=== PATIENT | female | born 1980 | race American Indian/Alaskan Native ===

== ENCOUNTER 2016-04-22 11:32 | Outpatient (CLI) | payer OTHER | END 2016-04-22 11:33 | disposition home or self-care (01) | DX: D50.9 Iron deficiency anemia, unspecified (principal); R53.1 Weakness ==

== ENCOUNTER 2016-07-04 11:49 | Outpatient (CLI) | payer OTHER | END 2016-07-04 11:50 | disposition home or self-care (01) | DX: R94.5 Abnormal results of liver function studies (principal) ==

== ENCOUNTER 2016-07-11 18:50 | Outpatient (CLI) | payer OTHER | END 2016-07-11 18:51 | disposition home or self-care (01) | DX: K76.0 Fatty (change of) liver, not elsewhere classified (principal) ==

== ENCOUNTER 2016-08-08 08:00 | Outpatient (CLI) | payer OTHER ==
[2016-08-08 19:40] LABS: ALBUMIN/GLOBULIN RATIO 0.9 (1.0-2.2); BILIRUBIN,TOTAL 0.2 mg/dL (0.2-1.0); CALCIUM 9.4 mg/dL (8.5-10.3); CREATININE 0.6 mg/dL (0.4-1.0); POTASSIUM 3.8 mmol/L (3.5-5.0); TOTAL PROTEIN 8.1 g/dL (6.7-8.2)
== END 2016-08-08 08:01 | disposition home or self-care (01) ==
LOC: LAB.WCP 08:00
PROVIDERS: ATTEND Physician Assistant Medical
DX: R94.5 Abnormal results of liver function studies (principal)
CPT/HCPCS: 36415; 80053

== ENCOUNTER 2016-08-15 08:40 | Outpatient (CLI) | payer OTHER ==
[2016-08-16 22:16] LABS: TEST RESULT REPORT (())
[2016-08-17 11:08] LABS: TEST RESULT REPORT (())
== END 2016-08-15 08:41 | disposition home or self-care (01) ==
LOC: LAB.WCP 08:40
PROVIDERS: ATTEND Physician Assistant Medical
DX: N76.0 Acute vaginitis (principal)
CPT/HCPCS: 81599; 87255; 87480; 87510; 87660

== ENCOUNTER 2016-12-17 15:00 | Outpatient (CLI) | payer OTHER ==
[2016-12-17 19:17] LABS: BILIRUBIN,DIRECT 0.1 mg/dL (0.1-0.5); BILIRUBIN,TOTAL 0.5 mg/dL (0.2-1.0); TOTAL PROTEIN 7.1 g/dL (6.7-8.2)
== END 2016-12-17 15:01 | disposition home or self-care (01) ==
LOC: LAB.WCP 15:00
PROVIDERS: ATTEND Physician Assistant Medical
DX: K76.0 Fatty (change of) liver, not elsewhere classified (principal); Z71.9 Counseling, unspecified
CPT/HCPCS: 36415; 80076; 86803

== ENCOUNTER 2017-11-25 06:14 | Day surgery (SDC) | payer OTHER ==
[2017-11-25 06:48] LABS: HCG UR QUAL NEGATIVE
--- NOTE | 2017-11-25 07:01 | ANESTHESIA ---
Pre-Anesthesia VS, & Labs - Diagnosis right trigger thumb - Procedure right trigger thumb release Vital Signs: Temp Pulse Resp BP Pulse Ox 36.2 C L 16 152/96 H 98 11/25/17 06:35 11/25/17 06:35 11/25/17 06:35 11/25/17 06:35 HR 76 Height 5 ft 9 in Weight (kg) 128.1 kg Body Mass Index 36.5 - NPO >8 hours Last Fluid Intake: except 3:45 am - Is Patient ?: No Home Medications and Allergies Home Medications: Ambulatory Orders Medication Instructions Recorded Confirmed Cholecalciferol [Vitamin D3] 5,000 unit PO DAILY 11/24/17 11/25/17 Cyclobenzaprine HCl 5 mg PO TID PRN 11/24/17 11/25/17 Lisinopril/Hydrochlorothiazide 1 each PO DAILY 11/24/17 11/25/17 [Lisinopril-Hctz 10-12.5 mg Tab] Meloxicam 15 mg PO DAILY 11/24/17 11/25/17 Norgestimate-Ethinyl Estradiol 1 each PO DAILY 11/24/17 11/25/17 [Mononessa 28 Tablet] Ubidecarenone [Co Q-10] 100 mg PO TID 11/24/17 11/25/17 traMADol [Ultram] 50 mg PO Q4-6H PRN 11/24/17 11/25/17 Acetaminophen [Acetaminophen ER] 2 PRN 11/25/17 Allergies/Adverse Reactions: Allergies Allergy/AdvReac Type Severity Reaction Status Date / Time doxycycline Allergy Cramps Verified 11/24/17 13:24 duloxetine [From Cymbalta] Allergy Anxiety Verified 11/24/17 13:24 ibuprofen Allergy Hives Verified 11/24/17 13:24 melatonin Allergy Nausea Verified 11/24/17 13:24 naproxen [From Naprosyn] Allergy Hives Verified 11/24/17 13:24 sulfamethoxazole Allergy Dizziness Verified 11/24/17 13:24 [From Septra] trimethoprim [From Septra] Allergy Dizziness Verified 11/24/17 13:24 Anes History & Medical History - Anesthetic History Anesthesia Complications: reports: No previous complications Family history of Anesthesia Complications: Denies - Medical History Cardiovascular: reports: Hypertension Pulmonary: reports: None Gastrointestinal: reports: None, Other Urinary: reports: Chronic bladder infection Musculoskeletal: reports: Fibromyalgia, Rheumatoid arthritis, Scoliosis, Chronic back pain Endocrine/Autoimmune: reports: None Skin: reports: None Smoking Status: Current every day smoker (e cigarettes) - Surgical History Eyes Ears Nose Throat (EENT): Tonsil/Adenoidectomy Orthopedic: Spine surgery Exam General: Alert Dental: WNL Mouth Openin Fingerbreadth Neck Mobility: Limited Mallampati classification: III Thyromental Distance: greater than 6 cm Respiratory: Lungs clear Cardiovascular: Regular rate Mental/Cognitive Status: Alert/Oriented X3 Cognitive Status: Within normal limits Plan Anesthesia Type: MAC Consent for Procedure(s) Verified and Reviewed: Yes Code Status: Attempt Resuscitation ASA classification: 2-Mild systemic disease Is this case an emergency?: No
[2017-11-25] MEDS ORDERED: BUPIVACAINE 0.25%-EPI 1:200000 PF 30 ML VIAL ONE (07:05)
[2017-11-25] MEDS ORDERED: LACTATED RINGERS 1,000 ML IV ONE ×2 (07:12)
[2017-11-25] MEDS ORDERED: BUPIVACAINE 0.25%-EPI 1:200000 PF 10 ML VIAL SUBQ ONE ×3 (07:44)
[2017-11-25] MEDS ORDERED: MIDAZOLAM 2 MG/2 ML VIAL IVP ONE (08:00)
[2017-11-25] MEDS ORDERED: LIDOCAINE-MPF 2% 5 ML VIAL IM ONE (08:00)
[2017-11-25] MEDS ORDERED: fentaNYL 100 MCG/2 ML VIAL IVP ONE (08:00)
[2017-11-25] MEDS ORDERED: PROPOFOL 200 MG/20 ML VIAL IVP ONE (08:00)
[2017-11-25 08:52] VITALS: BP 136/82
--- NOTE | 2017-11-25 09:03 | OPERATIVE REPORT ---
DATE OF SERVICE: 11/25/2017 Physician: Mikaela Narvaez MD PREOPERATIVE DIAGNOSIS: Right trigger thumb. POSTOPERATIVE DIAGNOSIS: Right trigger thumb. NAME OF PROCEDURE: Right trigger thumb release. SURGEON: Mikaela Narvaez MD ANESTHESIA: Local, MAC. ANESTHESIOLOGIST: Virgil Chlid. INDICATIONS FOR SURGERY: Patient is a 37-year-old female who has had pain at the base of her thumb and periods of triggering with prior cortisone injection not relieving the problem, and the patient returning to the clinic with continued pain and prominence, but with slightly diminished triggering. At that point, surgery was recommended. FINDINGS AT SURGERY: The patient had synovitis of her tendon sheath. She did have a small ganglion of the A1 leo and prominence of that leo. There were otherwise no abnormalities in the tendon itself. DESCRIPTION OF OPERATIVE PROCEDURE: The patient was taken to the operating room , was given a light sedation with propofol in a supine position on the [facility]. The right hand was sterilely prepped and draped in a standard fashion. The patient had a transverse incision plotted with a marking pen and surgical timeout was held, after which infiltration was performed initially with about 2 mL of 0.25% Marcaine with epinephrine only in the tendon sheath and the local skin. After an appropriate delay for onset of anesthesia, the incision was made and a careful dissection was made in line with the tendon sheath down to the tendon sheath, exposing the area of the leo and the cystic abnormality, which was removed with a rongeur. The incision was made in the tendon sheath and the release taken through the A1 leo of the thumb. The tendon was inspected with the thumb moving from flexion into extension, and there was no evidence of triggering or constriction. Irrigation was performed and the thumb closed with interrupted 4-0 nylon suture. Sterile dressings were applied. The patient was then taken to the recovery room in stable condition. ESTIMATED BLOOD LOSS: Minimal. COMPLICATIONS: None. COUNTS: Sponge and needle counts correct. TD: 11/25/2017 08:31 MTDD
== END 2017-11-25 06:15 | disposition home or self-care (01) ==
LOC: SDS 06:14
PROVIDERS: ATTEND Orthopaedic Surgery
PROC: 0LN70ZZ Release Right Hand Tendon, Open Approach (ICD-10-PCS; principal; 2017-11-25 07:30)
DX: M65.311 Trigger thumb, right thumb (principal); M67.441 Ganglion, right hand; E66.9 Obesity, unspecified; I10 Essential (primary) hypertension; M79.7 Fibromyalgia; M06.9 Rheumatoid arthritis, unspecified; F17.290 Nicotine dependence, other tobacco product, uncomplicated; Z68.41 Body mass index [BMI] 40.0-44.9, adult; Z79.899 Other long term (current) drug therapy
CPT/HCPCS: 26055; 81025; J7120

== ENCOUNTER 2018-07-28 21:37 | Outpatient (CLI) | payer OTHER ==
--- NOTE | 2018-07-28 22:55 | XRAY Report ---
Reason: JOINT EFFUSION, KNEE PAIN, RIGHT KNEE Procedure Date: 07/28/2018 Accession Number: [id number] / [id number] Procedure: XR - Knee 3 View RT CPT Code: FULL RESULT: EXAM: RIGHT KNEE RADIOGRAPHY EXAM DATE: 07/28/2018 09:53 PM. CLINICAL HISTORY: Joint effusion, knee pain, bursitis flare-up of the right knee. Getting worse and more frequent. Current flare was lasting 4 days. COMPARISON: None. TECHNIQUE: 3 views. Weightbearing views are provided. FINDINGS: Bones: No acute displaced fractures or suspicious bony lesion. Joints: No dislocation. There is mild tricompartmental degenerative change. Small knee effusion. Soft Tissues: No significant soft tissue swelling. IMPRESSION: Small knee effusion. No acute osseous abnormality demonstrated. RADIA
== END 2018-07-28 21:38 | disposition home or self-care (01) ==
LOC: DI 21:37
PROVIDERS: ATTEND Family Medicine
DX: M25.561 Pain in right knee (principal); M25.461 Effusion, right knee

== ENCOUNTER 2018-11-18 09:52 | Outpatient (CLI) | payer OTHER ==
--- NOTE | 2018-11-19 10:16 | MRI Report ---
Reason: CHONDROMALACIA PATELLAE, RIGHT KNEE, KNEE PAIN, RI Procedure Date: 11/18/2018 Accession Number: [id number] / [id number] Procedure: MRI - Knee RT W/O CPT Code: FULL RESULT: EXAM: RIGHT KNEE MRI WITHOUT CONTRAST EXAM DATE: 11/18/2018 11:04 AM. CLINICAL HISTORY: CHONDROMALACIA PATELLAE, RIGHT KNEE, KNEE PAIN, RI. COMPARISON: KNEE 3 VIEW RT 07/28/2018 9:41 PM. TECHNIQUE: Multiplanar, multisequence T1-weighted and fluid-sensitive sequences of the knee without contrast. Other: None. FINDINGS: Bones and articular cartilage: Small marginal osteophytes at the femoral condyles and lateral tibial plateau. There is a large, approximately 2.5 x 1.7 cm full-thickness articular cartilage defect at the medial femoral condyle. There is a 0.8 x 1.2 cm full-thickness articular cartilage defect at the anterior aspect of the medial tibial plateau. Focal grade II chondromalacia at the medial aspect of the lateral femoral condyle. Full-thickness articular cartilage fissure or delamination injury at the posterior medial aspect of the lateral tibial plateau. Focal articular cartilage fissures at the femoral trochlear groove. No patellar subluxation. Medial Meniscus: The medial meniscus is intact. Lateral Meniscus: The lateral meniscus is intact. Cruciate Ligaments: The anterior and posterior cruciate ligaments are intact. Collateral Ligaments: The medial collateral and lateral collateral ligamentous structures are intact. Tendons: The quadriceps, patellar, semimembranosus, and popliteus tendons are unremarkable. Musculature: No edema or fatty atrophy. Other: Small joint effusion. There are loose bodies and/or focal synovial thickening and irregularity at the lateral aspect of the patellofemoral compartment. There are loose bodies at the anterior aspect of the lateral compartment and posterior aspect of the medial compartment. No popliteal cyst. The medial and lateral retinacula are intact. The subcutaneous tissues and fat pads are unremarkable. IMPRESSION: 1. 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 2. No ligament or meniscal tear. 3. Small joint effusion. 4. Multiple small loose bodies and/or focal synovial thickening and irregularity at the lateral aspect of the patellofemoral compartment. Multiple small loose bodies at the anterior aspect of the lateral compartment and posterior aspect of the medial compartment. RADIA
== END 2018-11-18 09:53 | disposition home or self-care (01) ==
LOC: DI 09:52
PROVIDERS: ATTEND Orthopaedic Surgery
DX: M94.261 Chondromalacia, right knee (principal); M25.461 Effusion, right knee; M23.41 Loose body in knee, right knee

== ENCOUNTER 2019-04-06 14:49 | Outpatient (CLI) | payer OTHER ==
[2019-04-06 18:55] LABS: BASOPHILS % (AUTO) 0.7 %; EOSINOPHILS # (AUTO) 0.1 10^3/uL (0.0-0.7); EOSINOPHILS % (AUTO) 1.3 %; HGB - HEMOGLOBIN 13.2 g/dL (12.0-16.0); MEAN CORPUSCULAR HGB CONC 32.9 g/dL (32.0-36.0); MEAN CORPUSCULAR VOLUME 91.1 fL (81.0-99.0); MEAN PLATELET VOLUME 10.1 fL (7.9-10.8); MONOCYTES # (AUTO) 0.4 10^3/uL (0.0-1.0); MONOCYTES % (AUTO) 6.8 %; NEUTROPHILS # (AUTO) 3.6 10^3/uL (1.5-6.6); NEUTROPHILS % (AUTO) 58.9 %; PLT - PLATELET COUNT 247 10^3/uL (130-450); RED CELL DISTRIBUTION WIDTH 13.6 % (12.0-15.0); WHITE BLOOD COUNT 6.2 x10^3/uL (4.8-10.8)
[2019-04-06 19:21] LABS: ALBUMIN 3.6 g/dL (3.2-5.5); ALBUMIN/GLOBULIN RATIO 0.9 (1.0-2.2); ALKALINE PHOSPHATASE 43 IU/L (42-121); ALT ALANINE AMINOTRANSFERASE 40 IU/L (10-60); AST ASPARTATE AMINOTRANSFERASE 39 IU/L (10-42); BILIRUBIN,TOTAL 0.7 mg/dL (0.2-1.0); BUN - BLOOD UREA NITROGEN 16 mg/dL (6-20); CALCIUM 9.2 mg/dL (8.5-10.3); CARBON DIOXIDE - CO2 25 mmol/L (21-32); CHLORIDE 104 mmol/L (101-111); CHOL/HDL RATIO 2.3 (<4.4); CHOLESTEROL 168 mg/dL; CREATININE 0.8 mg/dL (0.4-1.0); GFR - MDRD 81 (>89); GLUCOSE 126 mg/dL (70-100); HDL CHOLESTEROL 74 mg/dL; LDL CHOLESTEROL,CALCULATED 75 mg/dL; SODIUM 137 mmol/L (135-145); TOTAL PROTEIN 7.6 g/dL (6.7-8.2); VLDL CHOLESTEROL 19 mg/dL
== END 2019-04-06 23:59 | disposition home or self-care (01) ==
LOC: LAB.WCP 14:49
PROVIDERS: ATTEND Family Medicine
DX: I10 Essential (primary) hypertension (principal); K76.0 Fatty (change of) liver, not elsewhere classified; D50.9 Iron deficiency anemia, unspecified
CPT/HCPCS: 36415; 80053; 80061; 83721; 84443; 85025

== ENCOUNTER 2019-05-03 11:12 | Outpatient (CLI) | payer OTHER ==
--- NOTE | 2019-05-03 12:57 | Mammography Report ---
Reason: AXILLARY ACUTE LYMPHANGITIS, LT Procedure Date: 05/03/2019 Accession Number: [id number] / [id number] Procedure: NANCY - Diagnostic Dig Bilat CPT Code: Final Report FULL RESULT: EXAM: Diagnostic Dig Bilat, Breast Unilateral Limited DATE: 05/03/2019 11:59 AM CLINICAL HISTORY: Left axillary pain COMPARISON: 09/03/2012 MAMMOGRAM: TECHNIQUE: (B) - Bilateral CC and MLO views were obtained. PARENCHYMAL PATTERN: (A) - The breasts demonstrate scattered fibroglandular densities bilaterally. FINDINGS: No significant interval change. There are no suspicious masses, calcifications, or areas of distortion. Benign-appearing axillary lymph nodes are present. LEFT AXILLARY ULTRASOUND: TECHNIQUE: Real time scanning by the balloon tester with saved static images reviewed. FINDINGS: In the left axilla several benign-appearing lymph nodes are present, the largest 2.1 x 1.8 x 0.9 cm. No suspicious features are present. IMPRESSION: Benign findings. BI-RADS category 2. RECOMMENDATION: (ANNUAL) - Recommend routine annual screening mammography. Beginning at age 40. BI-RADS CATEGORY: (2) - Benign Findings. STANDARD QUALIFYING STATEMENTS: 1. This examination was not reviewed with the aid of Computer-Aided Detection (CAD). 2. A negative or benign imaging report should not preclude biopsy if clinically suspicious findings are present. 3. Dense breasts may obscure an underlying neoplasm. 4. This examination was reviewed with the aid of 3D breast imaging (tomosynthesis).
--- NOTE | 2019-05-04 15:44 | Ultrasound Report ---
Reason: LEFT BREAST Procedure Date: 05/03/2019 Accession Number: [id number] / [id number] Procedure: US - Breast Unilateral Limited CPT Code: Final Report FULL RESULT: EXAM: Diagnostic Ward Mullerat, Breast Unilateral Limited DATE: 05/03/2019 11:59 AM CLINICAL HISTORY: Left axillary pain COMPARISON: 09/03/2012 MAMMOGRAM: TECHNIQUE: (B) - Bilateral CC and MLO views were obtained. PARENCHYMAL PATTERN: (A) - The breasts demonstrate scattered fibroglandular densities bilaterally. FINDINGS: No significant interval change. There are no suspicious masses, calcifications, or areas of distortion. Benign-appearing axillary lymph nodes are present. LEFT AXILLARY ULTRASOUND: TECHNIQUE: Real time scanning by the allocation analyst with saved static images reviewed. FINDINGS: In the left axilla several benign-appearing lymph nodes are present, the largest 2.1 x 1.8 x 0.9 cm. No suspicious features are present. IMPRESSION: Benign findings. BI-RADS category 2. RECOMMENDATION: (ANNUAL) - Recommend routine annual screening mammography. Beginning at age 40. BI-RADS CATEGORY: (2) - Benign Findings. STANDARD QUALIFYING STATEMENTS: 1. This examination was not reviewed with the aid of Computer-Aided Detection (CAD). 2. A negative or benign imaging report should not preclude biopsy if clinically suspicious findings are present. 3. Dense breasts may obscure an underlying neoplasm. 4. This examination was reviewed with the aid of 3D breast imaging (tomosynthesis).
== END 2019-05-03 11:13 | disposition home or self-care (01) ==
LOC: DI 11:12
PROVIDERS: ATTEND Family Medicine
DX: L03.122 Acute lymphangitis of left axilla (principal); R92.2 Inconclusive mammogram
CPT/HCPCS: 76642; 77066

== ENCOUNTER 2019-07-08 08:00 | Outpatient (CLI) | payer OTHER ==
[2019-07-08 12:28] LABS: CALCIUM 9.7 mg/dL (8.5-10.3); CREATININE 0.7 mg/dL (0.4-1.0)
[2019-07-08 12:38] LABS: HEMOGLOBIN A1C 0.58 g/dL; HEMOGLOBIN A1C % 5.7 % (4.6-6.2)
== END 2019-07-08 23:59 | disposition home or self-care (01) ==
LOC: LAB.WCP 08:00
PROVIDERS: ATTEND Family Medicine
DX: E11.9 Type 2 diabetes mellitus without complications (principal)
CPT/HCPCS: 36415; 80048; 83036

== ENCOUNTER 2019-12-13 08:00 | Outpatient (CLI) | payer OTHER ==
[2019-12-13 19:36] LABS: ALBUMIN 3.6 g/dL (3.2-5.5); ALKALINE PHOSPHATASE 37 IU/L (42-121); ALT ALANINE AMINOTRANSFERASE 24 IU/L (10-60); AST ASPARTATE AMINOTRANSFERASE 24 IU/L (10-42); BILIRUBIN,TOTAL 0.6 mg/dL (0.2-1.0); BUN - BLOOD UREA NITROGEN 16 mg/dL (6-20); CALCIUM 9.6 mg/dL (8.5-10.3); CARBON DIOXIDE - CO2 23 mmol/L (21-32); CHLORIDE 107 mmol/L (101-111); CHOL/HDL RATIO 2.5 (<4.4); CHOLESTEROL 185 mg/dL; CREATININE 0.7 mg/dL (0.4-1.0); GLUCOSE 115 mg/dL (70-100); HDL CHOLESTEROL 74 mg/dL; LDL CHOLESTEROL,CALCULATED 93 mg/dL; LDL/HDL RATIO 1.3 (<4.4); SODIUM 139 mmol/L (135-145); TOTAL PROTEIN 7.1 g/dL (6.7-8.2); VLDL CHOLESTEROL 18 mg/dL
[2019-12-13 19:45] LABS: HEMOGLOBIN A1c% 5.5 % (4.27-6.07)
== END 2019-12-13 23:59 | disposition home or self-care (01) ==
LOC: LAB.WCP 08:00
PROVIDERS: ATTEND Family Medicine
DX: E11.9 Type 2 diabetes mellitus without complications (principal)
CPT/HCPCS: 36415; 80053; 80061; 83036; 83721

== ENCOUNTER 2020-07-05 16:14 | Outpatient (CLI) | payer OTHER ==
[2020-07-05 20:56] LABS: BASOPHILS % (AUTO) 0.6 %; EOSINOPHILS # (AUTO) 0.1 10^3/uL (0.0-0.7); EOSINOPHILS % (AUTO) 0.9 %; HGB - HEMOGLOBIN 12.9 g/dL (12.0-16.0); LYMPHOCYTES # (AUTO) 1.6 10^3/uL (1.5-3.5); LYMPHOCYTES % (AUTO) 28.7 %; MEAN CORPUSCULAR HEMOGLOBIN 30.5 pg (27.0-31.0); MEAN CORPUSCULAR HGB CONC 33.1 g/dL (32.0-36.0); MEAN CORPUSCULAR VOLUME 92.2 fL (81.0-99.0); MEAN PLATELET VOLUME 9.7 fL (7.9-10.8); MONOCYTES # (AUTO) 0.3 10^3/uL (0.0-1.0); MONOCYTES % (AUTO) 5.7 %; NEUTROPHILS # (AUTO) 3.5 10^3/uL (1.5-6.6); NEUTROPHILS % (AUTO) 63.9 %; PLT - PLATELET COUNT 256 10^3/uL (130-450); RED BLOOD COUNT 4.23 10^6/uL (4.20-5.40); RED CELL DISTRIBUTION WIDTH 13.4 % (12.0-15.0); WHITE BLOOD COUNT 5.4 x10^3/uL (4.8-10.8)
[2020-07-05 21:00] LABS: ESTIMATED AVERAGE GLUCOSE 120 mg/dL (70-100); HEMOGLOBIN A1c% 5.8 % (4.27-6.07)
[2020-07-05 21:06] LABS: CREATININE,URINE 163.4 mg/dL; MICROALBUM/CREATININE RATIO,UR 2.4 ug/mg (<30.0); MICROALBUMIN,URINE 0.4 mg/dL (0-300.0)
[2020-07-05 21:12] LABS: ALBUMIN 3.7 g/dL (3.2-5.5); ALBUMIN/GLOBULIN RATIO 1.1 (1.0-2.2); ALKALINE PHOSPHATASE 39 IU/L (42-121); ALT ALANINE AMINOTRANSFERASE 39 IU/L (10-60); AST ASPARTATE AMINOTRANSFERASE 33 IU/L (10-42); BILIRUBIN,TOTAL 0.6 mg/dL (0.2-1.0); BUN - BLOOD UREA NITROGEN 15 mg/dL (6-20); CALCIUM 9.4 mg/dL (8.5-10.3); CARBON DIOXIDE - CO2 25 mmol/L (21-32); CHLORIDE 104 mmol/L (101-111); CHOL/HDL RATIO 2.8 (<4.4); CHOLESTEROL 187 mg/dL; CREATININE 0.6 mg/dL (0.4-1.0); GFR - MDRD 112 (>89); GLUCOSE 114 mg/dL (70-100); HDL CHOLESTEROL 66 mg/dL; LDL CHOLESTEROL,CALCULATED 95 mg/dL; LDL/HDL RATIO 1.4 (<4.4); POTASSIUM 3.7 mmol/L (3.5-5.0); SODIUM 138 mmol/L (135-145); TOTAL PROTEIN 7.2 g/dL (6.7-8.2); TRIGLYCERIDES 129 mg/dL; VLDL CHOLESTEROL 26 mg/dL
[2020-07-05 21:24] LABS: THYROID STIMULATING HORMONE 0.77 uIU/mL (0.34-5.60)
[2020-07-05 21:26] LABS: FREE T4 (FREE THYROXINE) 0.9 ng/dL (0.58-1.64)
== END 2020-07-05 16:15 | disposition home or self-care (01) ==
LOC: LAB.N 16:14
PROVIDERS: ATTEND Family Medicine
DX: E11.9 Type 2 diabetes mellitus without complications (principal)
CPT/HCPCS: 36415; 80053; 80061; 82043; 82570; 83036; 83721; 84439; 84443; 85025

== ENCOUNTER 2020-12-18 08:07 | Outpatient (CLI) | payer OTHER ==
[2020-12-18 12:05] LABS: BASOPHILS % (AUTO) 0.6 %; EOSINOPHILS # (AUTO) 0.1 10^3/uL (0.0-0.7); EOSINOPHILS % (AUTO) 1.4 %; HCT - HEMATOCRIT 41.6 % (37.0-47.0); HGB - HEMOGLOBIN 13.5 g/dL (12.0-16.0); LYMPHOCYTES # (AUTO) 2.3 10^3/uL (1.5-3.5); LYMPHOCYTES % (AUTO) 31.7 %; MEAN CORPUSCULAR HEMOGLOBIN 30.7 pg (27.0-31.0); MEAN CORPUSCULAR HGB CONC 32.5 g/dL (32.0-36.0); MEAN CORPUSCULAR VOLUME 94.5 fL (81.0-99.0); MONOCYTES # (AUTO) 0.7 10^3/uL (0.0-1.0); MONOCYTES % (AUTO) 9.4 %; NEUTROPHILS # (AUTO) 4.1 10^3/uL (1.5-6.6); NEUTROPHILS % (AUTO) 56.8 %; PLT - PLATELET COUNT 254 10^3/uL (130-450); RED CELL DISTRIBUTION WIDTH 13.5 % (12.0-15.0); WHITE BLOOD COUNT 7.1 x10^3/uL (4.8-10.8)
[2020-12-18 12:40] LABS: CALCIUM 9.8 mg/dL (8.5-10.3); CREATININE 1.1 mg/dL (0.4-1.0); POTASSIUM 3.9 mmol/L (3.5-5.0)
[2020-12-18 14:20] LABS: ESTIMATED AVERAGE GLUCOSE 111 mg/dL (70-100); HEMOGLOBIN A1c% 5.5 % (4.27-6.07)
== END 2020-12-18 23:59 | disposition home or self-care (01) ==
LOC: LAB.WCP 08:07
PROVIDERS: ATTEND Family Medicine
DX: E11.9 Type 2 diabetes mellitus without complications (principal)
CPT/HCPCS: 36415; 80048; 83036; 85025

== ENCOUNTER 2021-03-07 18:58 | Outpatient (CLI) | payer OTHER ==
--- NOTE | 2021-03-08 08:27 | Ultrasound Report ---
PROCEDURE: Pelvic w/Transvaginal INDICATIONS: IUD SURVEILLANCE TECHNIQUE: Real-time scanning was performed of the pelvic organs, with image documentation. Additional endovagi nal scanning was necessary due to incomplete visualization of the adnexal and endometrial structures by transabdominal scanning. COMPARISON: None. FINDINGS: Study is limited based on the BMI. No pathologic free abdominal or pelvic fluid. Uterus: Uterus is normal in size at 7.8 x 3.8 x 5.3 cm. Uterine volume is 82.4 mL The endometrium m easures 5.6 mm in combined thickness. An IUD is in place. It appears to be satisfactory position. By history, the ear are potentially arms from a previous IUD which remain in place after removal of the previous IUD. No additional arms are identified. Ovaries: Right ovary measures 2.2 x 0.9 cm. Left ovary is 1.7 x 1.4 cm. Ovaries only visualized butts sabdominally. IMPRESSION: Limited exam. An IUD appears to be in satisfactory position. Retained portions of a previous IUD are not identified. Reviewed by: Scottie Ferraro MD on 03/08/2021 8:26 AM PST Approved by: Scottie Ferraro MD on 03/08/2021 8:26 AM PST Station ID: [id number]
== END 2021-03-07 18:59 | disposition home or self-care (01) ==
LOC: DI 18:58
PROVIDERS: ATTEND Nurse Practitioner Obstetrics & Gynecology
DX: Z30.431 Encounter for routine checking of intrauterine contraceptive device (principal)

== ENCOUNTER 2021-04-20 11:40 | Outpatient (CLI) | payer OTHER ==
[2021-04-20 17:46] LABS: BILIRUBIN,URINE NEGATIVE (NEGATIVE); GLUCOSE, URINE (UA) NEGATIVE (NEGATIVE); KETONES,URINE (UA) NEGATIVE (NEGATIVE); LEUKOCYTE ESTERASE, URINE NEGATIVE (NEGATIVE); NITRITE,URINE NEGATIVE (NEGATIVE); OCCULT BLOOD,URINE NEGATIVE (NEGATIVE); PH,URINE 6.5 PH (5.0-7.5); PROTEIN,URINE NEGATIVE (NEGATIVE); UROBILINOGEN,URINE 0.2 (NORMAL) E.U./dL (NORMAL)
[2021-04-20 17:54] LABS: CLARITY,URINE CLEAR (CLEAR)
== END 2021-04-20 23:59 | disposition home or self-care (01) ==
LOC: LAB.WCP 11:40
PROVIDERS: ATTEND Nurse Practitioner
DX: R30.0 Dysuria (principal)
CPT/HCPCS: 81001; 81003; 87086

== ENCOUNTER 2021-04-23 08:00 | Outpatient (CLI) | payer OTHER | END 2021-04-23 23:59 | disposition home or self-care (01) | LOC: LAB.WCP 08:00 | PROVIDERS: ATTEND Family Medicine | DX: N20.0 Calculus of kidney (principal) | CPT/HCPCS: 81599; 82365 ==

== ENCOUNTER 2021-08-06 15:32 | Outpatient (CLI) | payer OTHER ==
[2021-08-06 17:52] LABS: BASOPHILS % (AUTO) 0.6 %; EOSINOPHILS # (AUTO) 0.1 10^3/uL (0.0-0.7); EOSINOPHILS % (AUTO) 2.1 %; HCT - HEMATOCRIT 44.4 % (37.0-47.0); HGB - HEMOGLOBIN 14.6 g/dL (12.0-16.0); LYMPHOCYTES # (AUTO) 1.8 10^3/uL (1.5-3.5); LYMPHOCYTES % (AUTO) 26.6 %; MEAN CORPUSCULAR HEMOGLOBIN 30.3 pg (27.0-31.0); MEAN CORPUSCULAR HGB CONC 32.9 g/dL (32.0-36.0); MEAN CORPUSCULAR VOLUME 92.1 fL (81.0-99.0); MEAN PLATELET VOLUME 9.4 fL (7.9-10.8); MONOCYTES # (AUTO) 0.5 10^3/uL (0.0-1.0); MONOCYTES % (AUTO) 6.8 %; NEUTROPHILS # (AUTO) 4.2 10^3/uL (1.5-6.6); NEUTROPHILS % (AUTO) 63.6 %; PLT - PLATELET COUNT 255 10^3/uL (130-450); RED BLOOD COUNT 4.82 10^6/uL (4.20-5.40); RED CELL DISTRIBUTION WIDTH 13.4 % (12.0-15.0); WHITE BLOOD COUNT 6.6 x10^3/uL (4.8-10.8)
[2021-08-06 18:21] LABS: CREATININE,URINE 184.6 mg/dL; MICROALBUM/CREATININE RATIO,UR 3.8 ug/mg (<30.0); MICROALBUMIN,URINE 0.7 mg/dL (0-300.0)
[2021-08-06 18:22] LABS: % IRON SATURATION 30 % (20-50); ALBUMIN 3.8 g/dL (3.2-5.5); ALKALINE PHOSPHATASE 39 IU/L (42-121); ALT ALANINE AMINOTRANSFERASE 30 IU/L (10-60); AST ASPARTATE AMINOTRANSFERASE 20 IU/L (10-42); BILIRUBIN,TOTAL 0.7 mg/dL (0.2-1.0); BUN - BLOOD UREA NITROGEN 20 mg/dL (6-20); CALCIUM 9.2 mg/dL (8.5-10.3); CARBON DIOXIDE - CO2 26 mmol/L (21-32); CHLORIDE 102 mmol/L (101-111); CHOL/HDL RATIO 2.8 (<4.4); CHOLESTEROL 209 mg/dL; CREATININE 0.7 mg/dL (0.4-1.0); GFR - MDRD 93 (>89); GLUCOSE 108 mg/dL (70-100); HDL CHOLESTEROL 76 mg/dL; IRON 104 ug/dL (28-170); LDL CHOLESTEROL,CALCULATED 115 mg/dL; LDL/HDL RATIO 1.5 (<4.4); POTASSIUM 3.9 mmol/L (3.5-5.0); SODIUM 137 mmol/L (135-145); TOTAL IRON BINDING CAPACITY 349 ug/dL (250-450); TOTAL PROTEIN 7.7 g/dL (6.7-8.2); TRANSFERRIN 249 mg/dL (192-382); TRIGLYCERIDES 88 mg/dL; VLDL CHOLESTEROL 18 mg/dL
[2021-08-06 18:30] LABS: THYROID STIMULATING HORMONE 0.96 uIU/mL (0.34-5.60)
[2021-08-06 20:16] LABS: ESTIMATED AVERAGE GLUCOSE 103 mg/dL (70-100); HEMOGLOBIN A1c% 5.2 % (4.27-6.07)
== END 2021-08-06 15:33 | disposition home or self-care (01) ==
LOC: LAB.N 15:32
PROVIDERS: ATTEND Nurse Practitioner
DX: E11.9 Type 2 diabetes mellitus without complications (principal); G25.81 Restless legs syndrome; R53.83 Other fatigue
CPT/HCPCS: 36415; 80053; 80061; 82043; 82570; 83036; 83540; 83721; 84443; 84466; 85025

== ENCOUNTER 2021-11-29 08:00 | Outpatient (CLI) | payer OTHER ==
[2021-11-29 23:30] LABS: BACTERIAL VAGINOSIS DNA NEGATIVE (NEGATIVE); CANDIDA GLABRATA DNA NEGATIVE (NEGATIVE); CANDIDA GROUP DNA NEGATIVE (NEGATIVE); CANDIDA KRUSEI DNA NEGATIVE (NEGATIVE); TRICHOMONAS VAGINALIS DNA NEGATIVE (NEGATIVE)
== END 2021-11-29 23:59 | disposition home or self-care (01) ==
LOC: LAB.N 08:00
PROVIDERS: ATTEND Registered Nurse
DX: R31.9 Hematuria, unspecified (principal); R10.9 Unspecified abdominal pain; N32.89 Other specified disorders of bladder; L29.8 Other pruritus
CPT/HCPCS: 81514; 87086

== ENCOUNTER 2021-12-21 12:44 | Outpatient (CLI) | payer OTHER ==
--- NOTE | 2021-12-21 14:57 | Ultrasound Report ---
PROCEDURE: Pelvic w/Transvaginal INDICATIONS: PELVIC PAIN TECHNIQUE: Real-time scanning was performed of the pelvic organs, with image documentation. Additional endovagi nal scanning was necessary due to incomplete visualization of the adnexal and endometrial structures by transabdominal scanning. COMPARISON: 03/07/2021 FINDINGS: Uterus: Uterus is anteverted and normal in size at 9.4 x 3.4 x 4.8 cm. The myometrium is homogeneou s. The endometrium measures 6 mm in combined thickness. IUD is in appropriate position. Ovaries: The right ovary measures 2.0 x 1.9 x 1.4 cm, with a calculated ovarian volume of 2.8 cc. T he left ovary measures 2.1 x 1.1 x 1.4 cm, with a calculated ovarian volume of 1.7 cc. The ovaries h ave a normal sonographic appearance. Less than 12 follicles can be seen in each ovary. No adnexal m asses are seen. Other: No pathologic free abdominal or pelvic fluid. IMPRESSION: 1. Normal pelvic ultrasound with appropriate position of IUD. 2. No significant change compared to the prior study. Reviewed by: Gaby Guadarrama MD on 12/21/2021 2:56 PM PDT Approved by: Gaby Guadarrama MD on 12/21/2021 2:56 PM PDT Station ID: [id number]
--- NOTE | 2021-12-21 14:58 | Ultrasound Report ---
PROCEDURE: Renal ultrasound INDICATIONS: RIGHT FLANK PAIN, PELVIC PAIN TECHNIQUE: Real-time scanning was performed of the retroperitoneal organs, with image documentation. COMPARISON: None FINDINGS: Kidneys: Kidneys are normal in size. Right kidney measures 12.7 cm long; left kidney measures 14.3 cm long. Right renal cortical thickness is 2.1 cm; left renal cortical thickness is 1.5 cm. No samm d masses, hydronephrosis, or nephrolithiasis. Prevoid bladder measures 227 cc. Bilateral ureteral jets documented IMPRESSION: Normal ultrasound of the kidneys and bladder Reviewed by: Alverto Sanchez MD on 12/21/2021 1:56 PM [facility] Approved by: Alverto Sanchez MD on 12/21/2021 1:56 PM AKDT Station ID: [id number]
== END 2021-12-21 12:45 | disposition home or self-care (01) ==
LOC: DI 12:44
PROVIDERS: ATTEND Nurse Practitioner
DX: R10.9 Unspecified abdominal pain (principal); R10.2 Pelvic and perineal pain; Z97.5 Presence of (intrauterine) contraceptive device

== ENCOUNTER 2022-01-28 15:04 | Outpatient (CLI) | payer OTHER ==
[2022-01-28 18:03] LABS: BILIRUBIN,URINE NEGATIVE (NEGATIVE); GLUCOSE, URINE (UA) NEGATIVE (NEGATIVE); KETONES,URINE (UA) NEGATIVE (NEGATIVE); LEUKOCYTE ESTERASE, URINE NEGATIVE (NEGATIVE); NITRITE,URINE NEGATIVE (NEGATIVE); OCCULT BLOOD,URINE NEGATIVE (NEGATIVE); PH,URINE 6.5 PH (5.0-7.5); PROTEIN,URINE NEGATIVE (NEGATIVE); UROBILINOGEN,URINE 0.2 (NORMAL) E.U./dL (NORMAL)
[2022-01-28 18:04] LABS: CLARITY,URINE HAZY (CLEAR)
[2022-01-28 18:15] LABS: CHOL/HDL RATIO 2.5 (<4.4); CHOLESTEROL 198 mg/dL; HDL CHOLESTEROL 78 mg/dL; LDL CHOLESTEROL,CALCULATED 101 mg/dL; LDL/HDL RATIO 1.3 (<4.4); TRIGLYCERIDES 96 mg/dL; VLDL CHOLESTEROL 19 mg/dL
[2022-01-28 18:25] LABS: BACTERIA,URINE Rare /HPF (None Seen); RBC,URINE 0-5 /HPF (0-5); SQUAMOUS EPITHELIAL CELL,UR FEW Squamous (<= Few); WBC,URINE 0-3 /HPF (0-5)
[2022-01-28 21:32] LABS: ESTIMATED AVERAGE GLUCOSE 105 mg/dL (70-100); HEMOGLOBIN A1c% 5.3 % (4.27-6.07)
== END 2022-01-28 15:05 | disposition home or self-care (01) ==
LOC: LAB.N 15:04
PROVIDERS: ATTEND Nurse Practitioner
DX: E11.9 Type 2 diabetes mellitus without complications (principal); Z51.81 Encounter for therapeutic drug level monitoring; R31.9 Hematuria, unspecified
CPT/HCPCS: 36415; 80061; 81001; 83036; 83721; 87086

== ENCOUNTER 2022-06-18 12:34 | Outpatient (CLI) | payer OTHER ==
--- NOTE | 2022-06-19 09:28 | Mammography Report ---
BILATERAL DIGITAL SCREENING MAMMOGRAM 3D/2D: 06/18/2022 CLINICAL: Routine screening. Comparison is made to exams dated: 05/03/2019 ultrasound, 05/03/2019 mammogram, and 09/03/2012 mammogram - [facility]. There are scattered areas of fibroglandular density in both breasts (category b / 25%-50% glandular t issue). No significant masses, calcifications, or other findings are seen in either breast. There has been no significant interval change. IMPRESSION: NEGATIVE There is no mammographic evidence of malignancy. A 1 year screening mammogram is recommended. Based on the Tyrer Cuzick model (a risk assessment model) the patients lifetime risk is 11.1% and he r 10 year risk is 1.4%. According to the ACR, ACS, and NCCN guidelines, an annual breast MRI exam katrina ng with mammogram is recommended if the patients lifetime risk is 20% or greater. This exam was interpreted at Station ID: [id number]. NOTE: For mammograms, a report in lay terms will be sent to the patient. Approximately 15% of breast malignancies will not be visualized mammographically. In the management of a palpable breast mass, a negative mammogram must not discourage biopsy of a clinically suspicious lesion. Electronically Signed By: Gaby fabian/isaac:06/18/2022 17:04:19 letter sent: No_Letter ACR BI-RADS Category 1: Negative 3341F PARENCHYMAL PATTERN: (A) - The breast(s) demonstrate(s) scattered fibroglandular densities. BI-RADS CATEGORY: (1) - 1 Mammogram [id number] 1 year screening LATERALITY: (B)
== END 2022-06-18 12:35 | disposition home or self-care (01) ==
LOC: DI.N 12:34
PROVIDERS: ATTEND Nurse Practitioner
DX: Z12.31 Encounter for screening mammogram for malignant neoplasm of breast (principal)

== ENCOUNTER 2023-01-24 13:02 | Outpatient (CLI) | payer OTHER ==
[2023-01-24 17:45] LABS: BASOPHILS # (AUTO) 0.1 10^3/uL (0.0-0.1); BASOPHILS % (AUTO) 0.8 %; EOSINOPHILS # (AUTO) 0.1 10^3/uL (0.0-0.7); HCT - HEMATOCRIT 43.5 % (37.0-47.0); HGB - HEMOGLOBIN 14.7 g/dL (12.0-16.0); LYMPHOCYTES % (AUTO) 16.7 %; MEAN CORPUSCULAR HEMOGLOBIN 30.8 pg (27.0-31.0); MEAN CORPUSCULAR HGB CONC 33.8 g/dL (32.0-36.0); MEAN CORPUSCULAR VOLUME 91.2 fL (81.0-99.0); MEAN PLATELET VOLUME 9.7 fL (7.9-10.8); MONOCYTES # (AUTO) 0.2 10^3/uL (0.0-1.0); MONOCYTES % (AUTO) 3.9 %; NEUTROPHILS # (AUTO) 4.7 10^3/uL (1.5-6.6); NEUTROPHILS % (AUTO) 76.3 %; PLT - PLATELET COUNT 266 10^3/uL (130-450); RED BLOOD COUNT 4.77 10^6/uL (4.20-5.40); RED CELL DISTRIBUTION WIDTH 13.5 % (12.0-15.0); WHITE BLOOD COUNT 6.1 x10^3/uL (4.8-10.8)
[2023-01-24 17:57] LABS: ALBUMIN 4.3 g/dL (3.2-5.5); ALBUMIN/GLOBULIN RATIO 1.4 (1.0-2.2); BILIRUBIN,TOTAL 0.4 mg/dL (0.2-1.0); CALCIUM 9.6 mg/dL (8.5-10.3); CREATININE 0.6 mg/dL (0.6-1.3); POTASSIUM 3.6 mmol/L (3.5-4.5); TOTAL PROTEIN 7.4 g/dL (6.4-8.9)
== END 2023-01-24 13:03 | disposition home or self-care (01) ==
LOC: LAB.N 13:02
PROVIDERS: ATTEND Nurse Practitioner
DX: R53.83 Other fatigue (principal)
CPT/HCPCS: 36415; 80053; 85025

== ENCOUNTER 2023-02-26 16:01 | Outpatient (CLI) | payer OTHER ==
--- NOTE | 2023-02-27 11:26 | Ultrasound Report ---
PROCEDURE: Arterial Visceral Complete INDICATIONS: HYPERTENSION TECHNIQUE: Real time scanning was performed of both kidneys, followed by Color and pulsed Doppler in terrogation of the renal vessels. COMPARISON: None FINDINGS: Aortic peak systolic velocity: 115.9 cm/s. Right side: Mitchell-scale imaging: Kidney is 12.1 cm long; renal cortical thickness is 1.7 cm. No hydronephrosis. No nephrolithiasis. Renal cortex is normal in echogenicity. No suspicious solid renal masses. Proximal renal artery peak systolic velocity: 144.77 cm/s. Mid renal artery peak systolic velocity: 89.09 cm/s. Distal renal artery peak systolic velocity: 114.63 cm/s. Renal vein: Patent, without thrombus. Peak renal/aortic ratio (RAR): 0.99. Left side: Mitchell-scale imaging: Kidney is 13.6 cm long; renal cortical thickness is 2.22 cm. No hydronephrosis. No nephrolithiasis. Renal cortex is normal in echogenicity. No suspicious solid renal masses. Proximal renal artery peak systolic velocity: 55.7 cm/s. Mid-renal artery peak systolic velocity: 86.3 cm/s. Distal renal artery peak systolic velocity: 82.6 cm/s. Renal vein: Patent, without thrombus. Peak renal/aortic ratio (RAR): 0.71. IMPRESSION: No ultrasound evidence of renal artery stenosis. Reviewed by: Eris Zaldivar on 02/27/2023 10:25 AM [facility] Approved by: Eris Zaldivar on 02/27/2023 10:25 AM [facility] Station ID: [id number]
== END 2023-02-26 16:02 | disposition home or self-care (01) ==
LOC: DI 16:01
PROVIDERS: ATTEND Nurse Practitioner
DX: I10 Essential (primary) hypertension (principal)
CPT/HCPCS: 93975

== ENCOUNTER 2023-03-19 15:44 | Outpatient (CLI) | payer OTHER ==
[2023-03-19 18:12] LABS: CALCIUM 9.4 mg/dL (8.5-10.3); CREATININE 0.5 mg/dL (0.6-1.3)
== END 2023-03-19 15:45 | disposition home or self-care (01) ==
LOC: LAB.N 15:44
PROVIDERS: ATTEND Nurse Practitioner
DX: Z51.81 Encounter for therapeutic drug level monitoring (principal); I10 Essential (primary) hypertension; Z79.899 Other long term (current) drug therapy
CPT/HCPCS: 36415; 80048; 82088; 84244

== ENCOUNTER 2023-10-21 07:30 | Outpatient (CLI) | payer OTHER | END 2023-10-21 07:45 | disposition home or self-care (01) | LOC: LAB.N 07:30 | PROVIDERS: ATTEND Physician Assistant Medical | DX: R30.0 Dysuria (principal) | CPT/HCPCS: 87086 ==

== ENCOUNTER 2023-10-22 14:27 | Outpatient (CLI) | payer OTHER ==
[2023-10-22 20:28] LABS: BACTERIAL VAGINOSIS DNA NEGATIVE (NEGATIVE); CANDIDA GLABRATA DNA NEGATIVE (NEGATIVE); CANDIDA GROUP DNA NEGATIVE (NEGATIVE); CANDIDA KRUSEI DNA NEGATIVE (NEGATIVE); TRICHOMONAS VAGINALIS DNA NEGATIVE (NEGATIVE)
== END 2023-10-22 14:28 | disposition home or self-care (01) ==
LOC: DI.N 14:27 → LAB.N 14:28
PROVIDERS: ATTEND Physician Assistant Medical
DX: R30.0 Dysuria (principal)
CPT/HCPCS: 81514

== ENCOUNTER 2023-12-09 14:30 | Outpatient (CLI) | payer OTHER ==
[2023-12-09 17:58] LABS: BASOPHILS % (AUTO) 0.5 %; EOSINOPHILS # (AUTO) 0.1 10^3/uL (0.0-0.7); EOSINOPHILS % (AUTO) 1.3 %; HCT - HEMATOCRIT 40.4 % (37.0-47.0); HGB - HEMOGLOBIN 13.2 g/dL (12.0-16.0); LYMPHOCYTES # (AUTO) 1.8 10^3/uL (1.5-3.5); LYMPHOCYTES % (AUTO) 28.9 %; MEAN CORPUSCULAR HGB CONC 32.7 g/dL (32.0-36.0); MEAN CORPUSCULAR VOLUME 94.8 fL (81.0-99.0); MEAN PLATELET VOLUME 9.8 fL (7.9-10.8); MONOCYTES # (AUTO) 0.5 10^3/uL (0.0-1.0); MONOCYTES % (AUTO) 8.3 %; NEUTROPHILS # (AUTO) 3.7 10^3/uL (1.5-6.6); NEUTROPHILS % (AUTO) 60.8 %; PLT - PLATELET COUNT 225 10^3/uL (130-450); RED BLOOD COUNT 4.26 10^6/uL (4.20-5.40); RED CELL DISTRIBUTION WIDTH 12.8 % (12.0-15.0); WHITE BLOOD COUNT 6.1 x10^3/uL (4.8-10.8)
[2023-12-09 18:15] LABS: ALBUMIN 4.1 g/dL (3.2-5.5); ALBUMIN/GLOBULIN RATIO 1.6 (1.0-2.2); ALKALINE PHOSPHATASE 44 IU/L (42-121); ALT ALANINE AMINOTRANSFERASE 25 IU/L (10-60); AST ASPARTATE AMINOTRANSFERASE 19 IU/L (10-42); BILIRUBIN,TOTAL 0.4 mg/dL (0.2-1.0); BUN - BLOOD UREA NITROGEN 21 mg/dL (6-20); CALCIUM 9.9 mg/dL (8.5-10.3); CARBON DIOXIDE - CO2 29 mmol/L (21-32); CHLORIDE 103 mmol/L (101-111); CHOL/HDL RATIO 2.8 (<4.4); CHOLESTEROL 173 mg/dL; CREATININE 0.6 mg/dL (0.6-1.3); GFR - MDRD 110 (>89); GLUCOSE 115 mg/dL (74-104); HDL CHOLESTEROL 61 mg/dL; LDL CHOLESTEROL,CALCULATED 90 mg/dL; LDL/HDL RATIO 1.5 (<4.4); SODIUM 137 mmol/L (135-145); TOTAL PROTEIN 6.6 g/dL (6.4-8.9); TRIGLYCERIDES 109 mg/dL; VLDL CHOLESTEROL 22 mg/dL
[2023-12-09 18:18] LABS: THYROID STIMULATING HORMONE 0.87 uIU/mL (0.34-5.60)
== END 2023-12-09 14:31 | disposition home or self-care (01) ==
LOC: LAB.N 14:30
PROVIDERS: ATTEND Nurse Practitioner
DX: I10 Essential (primary) hypertension (principal); Z51.81 Encounter for therapeutic drug level monitoring; Z13.220 Encounter for screening for lipoid disorders; R53.83 Other fatigue
CPT/HCPCS: 36415; 80053; 80061; 83721; 84443; 85025

== ENCOUNTER 2023-12-17 13:01 | Outpatient (CLI) | payer OTHER ==
--- NOTE | 2023-12-18 09:59 | Mammography Report ---
BILATERAL DIGITAL SCREENING MAMMOGRAM 3D/2D: 12/17/2023 CLINICAL: Routine screening. Comparison is made to exams dated: 06/18/2022 mammogram, 05/03/2019 ultrasound, 05/03/2019 mammogram, and 09/03/2012 mammogram - [facility]. The breasts are almost entirely fatty (category a/<25% glandular tissue). No significant masses, calcifications, or other findings are seen in either breast. There has been no significant interval change. IMPRESSION: NEGATIVE There is no mammographic evidence of malignancy. A 1 year screening mammogram is recommended. Based on the Tyrer Cuzick model (a risk assessment model) the patient's lifetime risk is 7.4% and her 10 year risk is 1.0%. According to the ACR, ACS, and NCCN guidelines, an annual breast MRI exam grover g with mammogram is recommended if the patient's lifetime risk is 20% or greater. This exam was interpreted at Station ID: [id number]. NOTE: For mammograms, a report in lay terms will be sent to the patient. Approximately 15% of breast malignancies will not be visualized mammographically. In the management of a palpable breast mass, a negative mammogram must not discourage biopsy of a clinically suspicious lesion. Electronically Signed By: Gaby fabian/isaac:12/17/2023 16:40:32 ACR BI-RADS Category 1: Negative 3341F PARENCHYMAL PATTERN: (F) - The breast(s) demonstrate(s) diffuse fatty replacement. BI-RADS CATEGORY: (1) - 1 RECOMMENDATION: (ANNUAL) - Recommend routine annual screening mammography. [id number] 1 year screening LATERALITY: (B)
== END 2023-12-17 13:02 | disposition home or self-care (01) ==
LOC: DI.N 13:01
DX: Z12.31 Encounter for screening mammogram for malignant neoplasm of breast (principal)